=== PATIENT | male | born 1975 | race Caucasian/White ===

== ENCOUNTER 2018-01-26 06:19 | Day surgery (SDC) | payer OTHER ==
[2018-01-26] MEDS ORDERED: PERCOCET 5-3251 EACH PO (11:58)
[2018-01-26] MEDS ORDERED: POLY119PG PO (11:59)
[2018-01-26] MEDS ORDERED: SURFAK240 MG PO (11:59)
[2018-01-26] MEDS ORDERED: NEURONTIN600 MG PO (12:00)
== END 2018-01-26 20:45 | disposition home or self-care (01) ==
LOC: CIR.AMB 06:19
DX: K43.6 Other and unspecified ventral hernia with obstruction, without gangrene (principal); K42.0 Umbilical hernia with obstruction, without gangrene